=== PATIENT | male | born 1940 | race Caucasian/White ===

== ENCOUNTER 2021-04-21 03:51 | Emergency (ER) | payer OTHER ==
[~2021-04-21] VITALS: Ht 167.6 cm; Wt 83.9 kg
[2021-04-21 04:15] VITALS: BP_SYST 193
--- NOTE | 2021-04-21 04:32 | NUR ---
ER Dr. Montes at bedside examining patient.
[2021-04-21] MEDS ORDERED: DIPHENHYDRAMINE INJ 50 MG/ML VIAL IM ONE (04:45)
[2021-04-21] MEDS ORDERED: predniSONE 20 MG TABLET PO ONE (04:45)
[2021-04-21] MEDS ORDERED: fentaNYL CITRATE/PF 100 MCG/2 ML AMP IM ONE (04:45)
--- NOTE | 2021-04-21 04:45 | NUR ---
Rosio marinelli in ED - 04/21/21 at 0536 by [email or web address] VINNY Montes at bedside examining patient.
--- NOTE | 2021-04-21 05:00 | NUR ---
Medicated w/ prednisone, fentanyl, and benadryl im per MD orders. Will cont to monitor and observe for any adverse reaction. Bed to low position sr up, continue to monitor.
--- NOTE | 2021-04-21 05:35 | NUR ---
patient states feels better. Continue to monitor patient level of comfort. awaiting for his to come pick him up for transportation home. Patient resting quietly. No acute distress noted. Vital signs within normal range.
--- NOTE | 2021-04-21 05:45 | NUR ---
Patient given written and verbal discharge instructions and verbalizes understanding. ER MD discussed with patient the results and treatment provided. Patient in stable condition. ID arm band removed. Rx of prednisone given. Patient educated on pain management and to follow up with PMD. Pain Scale 3. Opportunity for questions provided and answered. Medication side effect fact sheet provided.
== END 2021-04-21 05:45 | disposition home or self-care (01) ==
LOC: SED 03:51
DX: M54.32 Sciatica, left side (principal); I10 Essential (primary) hypertension
CPT/HCPCS: 96372; 99284; J1200; J3010; J7512

== ENCOUNTER 2023-03-14 23:34 | Emergency (ER) | payer OTHER ==
[~2023-03-14] VITALS: Ht 170.2 cm; Wt 92.1 kg
[2023-03-14 23:46] VITALS: BP_SYST 133; PULSE 112; RESP 26; TEMP 97.9; O2SAT 90
[2023-03-15 00:43] LABS: ALANINE AMINOTRANSFERASE 24 U/L (12-78); ALBUMIN 2.9 g/dL (3.4-4.8); ANION GAP 8 (5-15); ASPARTATE AMINOTRANSFERASE 17 U/L (10-37); CALCIUM 8.9 mg/dL (8.4-11.0); CARBON DIOXIDE 28 mmol/L (23-29); CHLORIDE 104 mmol/L (98-107); CREATININE 1.14 mg/dL (0.55-1.30); GLUCOSE 156 mg/dL (74-106); POTASSIUM 3.7 mmol/L (3.5-5.1); SODIUM SERUM 140 mmol/L (136-145); TOTAL BILIRUBIN 0.3 mg/dL (0.0-1.0); UREA NITROGEN, BLOOD 19 mg/dL (8-21)
[2023-03-15 01:32] LABS: BASOPHILS # (AUTO) 0.1 K/uL (0.0-0.2); BASOPHILS % (AUTO) 0.6 % (0.0-2.0); EOSINOPHILS # (AUTO) 0.1 K/uL (0.0-0.4); EOSINOPHILS % (AUTO) 1.4 % (0.0-4.0); HEMATOCRIT 42.2 % (36-54); HEMOGLOBIN 13.5 g/dL (14.0-18.0); LYMPHOCYTES # (AUTO) 1.8 K/uL (1.0-5.5); LYMPHOCYTES % (AUTO) 18.2 % (20.5-51.5); MEAN CORPUSCULAR HEMOGLOBIN 27 pg (27-31); MEAN CORPUSCULAR HGB CONC 32 % (32-36); MEAN CORPUSCULAR VOLUME 86 fL (79.0-98.0); MONOCYTES % (AUTO) 9.9 % (1.7-9.3); NEUTROPHILS # (AUTO) 6.8 K/uL (1.8-7.7); NEUTROPHILS % (AUTO) 69.9 % (40.0-70.0); PLATELET COUNT (AUTO) 153 K/uL (130-430); RED BLOOD CELL COUNT(AUTO) 4.94 MIL/uL (4.2-6.2); RED CELL DISTRIBUTION WIDTH 15.3 % (9.0-15.0); WHITE BLOOD COUNT (AUTO) 9.8 K/uL (4.8-10.8)
[2023-03-15 01:39] LABS: PROTHROMBIN TIME 10.4 SECS (9.5-12.5)
[2023-03-15] MEDS ORDERED: iohexoL 350 mgI/mL, 100 ML INFUS..BTL IV ONE (01:47)
[2023-03-15] MEDS ORDERED: NACL 0.9% 1,000 ML IV ONE (02:45)
[2023-03-15] MEDS ORDERED: ASPIRIN 325 MG TABLET PO ONE (02:45)
[2023-03-15] MEDS ORDERED: HEPARIN SODIUM,PORCINE 5,000 UNITS/ML VIAL IVP ONE (04:00)
[2023-03-15] MEDS ORDERED: *HEPARIN PER PHARMACY XX ONE (04:00)
[2023-03-15] MEDS ORDERED: HEPARIN 25,000 UNITS in 250 ML PREMIX IV PRN (04:45)
[2023-03-15 12:40] VITALS: BP_SYST 141; PULSE 95; RESP 20; TEMP 97.8; O2SAT 96
== END 2023-03-15 16:02 | disposition short-term general hospital (02) ==
LOC: SED 23:34
DX: I21.4 Non-ST elevation (NSTEMI) myocardial infarction (principal); R07.9 Chest pain, unspecified; R06.02 Shortness of breath; R53.1 Weakness; I10 Essential (primary) hypertension; Z79.899 Other long term (current) drug therapy; Z20.822 Contact with and (suspected) exposure to COVID-19
CPT/HCPCS: 99291; 71045; 87426; 80053; 83880; 85025; 85610; 85730; 84484; 36415; 93005 ×2; 99292; 96374; 71275; 96361; 76376; Q9967; J1644 ×2; J7030